=== PATIENT | female | born 2005 | race Caucasian/White ===

== ENCOUNTER 2024-12-09 09:42 | Outpatient (CLI) | payer OTHER ==
[2024-12-09 09:00] VITALS: BP 95/55
[2024-12-09] MEDS ORDERED: PRENATABS RX T1 EACH PO (09:51)
[2024-12-09 13:00] VITALS: BP 94/60
[2024-12-09 13:26] VITALS: BP 94/60
== END 2024-12-09 13:55 | disposition left against medical advice (07) ==
LOC: OBS/DEL 09:42
PROVIDERS: ATTEND Obstetrics & Gynecology
DX: O26.892 Other specified pregnancy related conditions, second trimester (principal); Z3A.22 22 weeks gestation of pregnancy